=== PATIENT | male | born 1980 | race Caucasian/White ===

== ENCOUNTER 2018-07-13 17:13 | Emergency (ER) | payer SELFPAY ==
[~2018-07-13] VITALS: Ht 182.9 cm; Wt 54.4 kg
[2018-07-13 17:24] VITALS: BP 146/99
== END 2018-07-13 17:34 | disposition home or self-care (01) ==
LOC: EDBD 17:13 → ER 17:13
DX: Z02.89 Encounter for other administrative examinations (principal)

== ENCOUNTER 2019-10-17 18:53 | Emergency (ER) | payer SELFPAY ==
[~2019-10-17] VITALS: Ht 182.9 cm; Wt 72.6 kg
[2019-10-17 21:14] VITALS: BP 135/90
[2019-10-17] MEDS ORDERED: IBUPROFEN 800 MG TAB PO ONE (21:30)
[2019-10-17] MEDS ORDERED: ACETAMINOPHEN 500 MG TAB PO ONE (21:30)
== END 2019-10-18 00:09 | disposition home or self-care (01) ==
LOC: EDBD 18:53 → ER 18:53
DX: S13.9XXA Sprain of joints and ligaments of unspecified parts of neck, initial encounter (principal); J06.9 Acute upper respiratory infection, unspecified; Z76.0 Encounter for issue of repeat prescription; F17.210 Nicotine dependence, cigarettes, uncomplicated; F15.10 Other stimulant abuse, uncomplicated; X50.1XXA Overexertion from prolonged static or awkward postures, initial encounter; Y93.89 Activity, other specified; Y99.9 Unspecified external cause status; Y92.9 Unspecified place or not applicable
CPT/HCPCS: 71046; 72040